=== PATIENT | female | born 1945 | race Caucasian/White ===

== ENCOUNTER 2020-10-06 18:09 | Inpatient (IN) ==
[2020-10-06 19:57] LABS: Basophils % 0.2 % (0.0-0.8); Eosinophils # 0.2 10*3/uL (0.0-0.87); Eosinophils % 2.1 % (0.00-10.9); Hematocrit 45.9 VOL% (35.7-47.0); Hemoglobin 14.4 GM/DL (12.0-16.0); Immature Granulocytes % 0.3 %; Immature Granulocytes Absolute 0.03 #; Lymphocytes # 4.2 10*3/uL (1.4-4.0); Lymphocytes % 44.7 % (21.3-54.2); Mean Corpuscular HGB Conc 31.4 GM/DL (32-36); Mean Corpuscular Volume 94.1 FL (87-102); Mean Platelet Volume 10.3 FL (9.6-12.0); Monocytes % 10.9 % (1.7-12.7); Neutrophils % 41.8 % (38.7-73.9); Platelet Count 258 T/CUMM (130-400); Red Blood Count 4.88 MC/CUMM (3.8-5.5); Red Cell Distribution Width 13.4 % (9.3-17.3); White Blood Count 9.4 T/CUMM (4-12)
[2020-10-06 20:23] LABS: Alanine Aminotransferase 18 U/L (13-56); Albumin 3.1 G/DL (3.4-5.0); Alkaline Phosphatase 96 U/L (45-117); Aspartate Amino Transferase 27 U/L (0-37); Bilirubin,Total < 0.39 MG/DL (0.2-1.0); Blood Urea Nitrogen 17 MG/DL (7-18); Carbon Dioxide 28 MMOL/L (21-32); Estimated Glom Filtration Rate 50 ML/MIN; Glucose 100 MG/DL (74-106); Osmolality,Calculated 274.8 MOS/KG (273-304); Potassium 4.5 MMOL/L (3.5-5.1); Sodium 137 MMOL/L (136-145)
[2020-10-06 20:33] LABS: Eosinophils 2 % (0-10); Lymphocytes 41 % (20-55); Segmented Neutrophils 50 % (50-85); Total Cells Counted 100
[2020-10-06 20:34] LABS: Platelet Estimate Adequate
[2020-10-06 20:38] LABS: Ferritin 58.2 ng/ml (8-252)
[2020-10-06 20:59] LABS: ABG Base Excess 1.9 MMOL/L (-2.5-2.5); ABG Oxygen Saturation 94.9 % (95-100); ABG PCO2 38.2 MM HG (35-48); ABG PO2 73.7 MM HG (80-95); ABG TCO2 22.5 MMOL/L (23-27)
[2020-10-06 21:16] LABS: Bilirubin,Urine Negative (Negative); Blood, Urine Negative (Negative); Glucose,Urine (UA) Negative (Negative); Ketones,Urine Negative (Negative); Mucus,Urine Few /LPF (Occasional); Nitrite,Urine Negative (Negative); Protein,Urine Negative; RBC,Urine 1 /HPF (0-4); Squamous Epithelial Cell,Urine Occasional /HPF (0-10); Urine Appearance CLEAR (Clear); Urine Color Yellow (Yellow); Urine Specific Gravity 1.024 (1.001-1.035); WBC,Urine 1 /HPF (0-6)
[2020-10-06] MEDS ORDERED: GLUCAGON 1 MG VIAL IM PRN (21:27)
[2020-10-06] MEDS ORDERED: ONDANSETRON 4 MG/2 ML VIAL IV PRN (21:27)
[2020-10-06] MEDS ORDERED: ZALEPLON 5 MG CAPSULE PO PRN (21:27)
[2020-10-06] MEDS ORDERED: DEXTROSE 50% 25 GM/50 ML VIAL IV PRN (21:27)
[2020-10-06] MEDS: ASCORBIC ACID 500 MG TABLET PO SCH (21:52)
[2020-10-06] MEDS: ENOXAPARIN 40 MG/0.4 ML SYRINGE SUBCUT SCH (21:52)
[2020-10-06] MEDS: cefTRIAXone 1,000 MG in SYRINGE 1 EACH IV SCH (21:52)
[2020-10-06] MEDS: AZITHROMYCIN INJ 500 MG in SODIUM CHLORIDE 0.9% 250 ML IV SCH (21:52)
[2020-10-06] MEDS: FAMOTIDINE 20 MG TABLET PO SCH (21:52)
[2020-10-07] MEDS: ALBUTEROL INHALER 18 GM INH SCH ×4 (01:23→21:32)
[2020-10-07 05:52] LABS: Basophils % 0.2 % (0.0-0.8); Eosinophils # 0.2 10*3/uL (0.0-0.87); Eosinophils % 2.2 % (0.00-10.9); Hematocrit 42.8 VOL% (35.7-47.0); Immature Granulocytes % 0.5 %; Immature Granulocytes Absolute 0.04 #; Lymphocytes # 4.4 10*3/uL (1.4-4.0); Mean Corpuscular HGB Conc 30.4 GM/DL (32-36); Mean Corpuscular Volume 96.4 FL (87-102); Mean Platelet Volume 10.2 FL (9.6-12.0); Monocytes % 11.9 % (1.7-12.7); Neutrophils % 34.2 % (38.7-73.9); Platelet Count 255 T/CUMM (130-400); Red Blood Count 4.44 MC/CUMM (3.8-5.5); Red Cell Distribution Width 13.4 % (9.3-17.3); White Blood Count 8.6 T/CUMM (4-12)
[2020-10-07 06:08] LABS: Albumin 2.7 G/DL (3.4-5.0); Bilirubin,Total 0.4 MG/DL (0.2-1.0); Calcium 8.9 MG/DL (8.5-10.1); Ferritin 44.6 ng/ml (8-252); Osmolality,Calculated 277.5 MOS/KG (273-304); Potassium 4.3 MMOL/L (3.5-5.1); Total Protein 7.4 G/DL (6.4-8.3)
[2020-10-07 06:35] LABS: Atypical Lymphocytes Few; Eosinophils 1 % (0-10); Lymphocytes 54 % (20-55); Segmented Neutrophils 29 % (50-85); Total Cells Counted 100
[2020-10-07 06:36] LABS: Hypochromasia 1+; Microcytosis 1+; Platelet Estimate Normal
[2020-10-07] MEDS: CHOLECALCIFEROL 1,000 UNIT TABLET PO SCH (08:56)
[2020-10-07] MEDS: CETIRIZINE 10 MG TABLET PO SCH (08:57)
[2020-10-07] MEDS: FAMOTIDINE 20 MG TABLET PO SCH ×2 (08:57→21:31)
[2020-10-07] MEDS: ASCORBIC ACID 500 MG TABLET PO SCH ×2 (08:57→21:31)
[2020-10-07] MEDS: ZINC GLUCONATE 50 MG TABLET PO SCH (08:57)
[2020-10-07] MEDS: DEXAMETHASONE 4 MG/1 ML VIAL IV SCH (08:58)
[2020-10-07] MEDS: ENOXAPARIN 40 MG/0.4 ML SYRINGE SUBCUT SCH (21:31)
[2020-10-07] MEDS: cefTRIAXone 1,000 MG in SYRINGE 1 EACH IV SCH (21:31)
[2020-10-07] MEDS: MELATONIN 3 MG TABLET PO PRN (21:32)
[2020-10-07] MEDS: ACETAMINOPHEN 325 MG TABLET PO PRN (21:32)
[2020-10-07] MEDS: AZITHROMYCIN INJ 500 MG in SODIUM CHLORIDE 0.9% 250 ML IV SCH (22:30)
[2020-10-08] MEDS: ALBUTEROL INHALER 18 GM INH SCH ×4 (02:09→18:30)
[2020-10-08 04:44] LABS: ABG Base Excess -1.1 MMOL/L (-2.5-2.5); ABG HCO3 23.1 MMOL/L (20-26); ABG Oxygen Saturation 91.9 % (95-100); ABG PCO2 37.2 MM HG (35-48); ABG PH 7.411 (7.35-7.45); ABG PO2 64.5 MM HG (80-95); ABG TCO2 24.2 MMOL/L (23-27); Allen Test Positive; Pt O2 Delivery Device Room Air
[2020-10-08 05:48] LABS: Basophils % 0.1 % (0.0-0.8); Hematocrit 41.9 VOL% (35.7-47.0); Hemoglobin 13.7 GM/DL (12.0-16.0); Immature Granulocytes % 0.6 %; Immature Granulocytes Absolute 0.06 #; Lymphocytes # 3.3 10*3/uL (1.4-4.0); Lymphocytes % 34.6 % (21.3-54.2); Mean Corpuscular HGB Conc 32.7 GM/DL (32-36); Mean Corpuscular Volume 90.5 FL (87-102); Mean Platelet Volume 10.1 FL (9.6-12.0); Monocytes % 7.5 % (1.7-12.7); Neutrophils % 57.2 % (38.7-73.9); Platelet Count 283 T/CUMM (130-400); Red Blood Count 4.63 MC/CUMM (3.8-5.5); Red Cell Distribution Width 13.2 % (9.3-17.3); White Blood Count 9.5 T/CUMM (4-12)
[2020-10-08 06:02] LABS: Calcium 9.2 MG/DL (8.5-10.1); Osmolality,Calculated 277.7 MOS/KG (273-304); Potassium 4.3 MMOL/L (3.5-5.1)
[2020-10-08] MEDS: METOPROLOL SUCCINATE XL 50 MG TABLET PO SCH (08:54)
[2020-10-08] MEDS: SIMVASTATIN 10 MG TABLET PO SCH (08:54)
[2020-10-08] MEDS: CHOLECALCIFEROL 1,000 UNIT TABLET PO SCH (08:54)
[2020-10-08] MEDS: CETIRIZINE 10 MG TABLET PO SCH (08:54)
[2020-10-08] MEDS: FAMOTIDINE 20 MG TABLET PO SCH ×2 (08:54→21:00)
[2020-10-08] MEDS: ASPIRIN CHEW 81 MG TABLET PO SCH (08:54)
[2020-10-08] MEDS: ASCORBIC ACID 500 MG TABLET PO SCH ×2 (08:54→21:00)
[2020-10-08] MEDS: ZINC GLUCONATE 50 MG TABLET PO SCH (08:54)
[2020-10-08] MEDS: DEXAMETHASONE 4 MG/1 ML VIAL IV SCH (08:55)
[2020-10-08] MEDS: cefTRIAXone 1,000 MG in SYRINGE 1 EACH IV SCH (21:00)
[2020-10-08] MEDS: ENOXAPARIN 40 MG/0.4 ML SYRINGE SUBCUT SCH (21:00)
[2020-10-08] MEDS: AZITHROMYCIN 250 MG TABLET PO SCH (21:38)
[2020-10-09] MEDS: ALBUTEROL INHALER 18 GM INH SCH ×4 (02:29→20:17)
[2020-10-09] MEDS: CHOLECALCIFEROL 1,000 UNIT TABLET PO SCH (08:05)
[2020-10-09] MEDS: CETIRIZINE 10 MG TABLET PO SCH (08:05)
[2020-10-09] MEDS: ZINC GLUCONATE 50 MG TABLET PO SCH (08:05)
[2020-10-09] MEDS: ASPIRIN CHEW 81 MG TABLET PO SCH (08:05)
[2020-10-09] MEDS: DEXAMETHASONE 4 MG/1 ML VIAL IV SCH (08:05)
[2020-10-09] MEDS: METOPROLOL SUCCINATE XL 50 MG TABLET PO SCH ×2 (08:05→09:16)
[2020-10-09] MEDS: FAMOTIDINE 20 MG TABLET PO SCH ×2 (08:05→21:27)
[2020-10-09] MEDS: ASCORBIC ACID 500 MG TABLET PO SCH ×2 (08:05→21:27)
[2020-10-09] MEDS: SIMVASTATIN 10 MG TABLET PO SCH (08:06)
[2020-10-09] MEDS: cefTRIAXone 1,000 MG in SYRINGE 1 EACH IV SCH (21:28)
[2020-10-09] MEDS: ENOXAPARIN 40 MG/0.4 ML SYRINGE SUBCUT SCH (21:28)
[2020-10-09] MEDS: AZITHROMYCIN 250 MG TABLET PO SCH (21:28)
[2020-10-09] MEDS: MELATONIN 3 MG TABLET PO PRN (21:29)
[2020-10-09] MEDS: ACETAMINOPHEN 325 MG TABLET PO PRN (21:29)
[2020-10-10] MEDS: ALBUTEROL INHALER 18 GM INH SCH ×4 (00:18→20:24)
[2020-10-10] MEDS: DEXAMETHASONE 4 MG/1 ML VIAL IV SCH (08:03)
[2020-10-10] MEDS: ZINC GLUCONATE 50 MG TABLET PO SCH (08:04)
[2020-10-10] MEDS: SIMVASTATIN 10 MG TABLET PO SCH (08:04)
[2020-10-10] MEDS: CHOLECALCIFEROL 1,000 UNIT TABLET PO SCH (08:04)
[2020-10-10] MEDS: ASPIRIN CHEW 81 MG TABLET PO SCH (08:04)
[2020-10-10] MEDS: METOPROLOL SUCCINATE XL 50 MG TABLET PO SCH (08:04)
[2020-10-10] MEDS: ASCORBIC ACID 500 MG TABLET PO SCH ×2 (08:04→21:50)
[2020-10-10] MEDS: CETIRIZINE 10 MG TABLET PO SCH (08:04)
[2020-10-10] MEDS: FAMOTIDINE 20 MG TABLET PO SCH ×2 (08:04→21:50)
[2020-10-10] MEDS: ACETAMINOPHEN 325 MG TABLET PO PRN ×2 (13:13→21:49)
[2020-10-10] MEDS ORDERED: BENZONATATE 100 MG CAPSULE PO PRN (15:03)
[2020-10-10] MEDS: MELATONIN 3 MG TABLET PO PRN (21:49)
[2020-10-10] MEDS: ENOXAPARIN 40 MG/0.4 ML SYRINGE SUBCUT SCH (21:51)
[2020-10-10] MEDS: cefTRIAXone 1,000 MG in SYRINGE 1 EACH IV SCH (21:51)
[2020-10-10] MEDS: AZITHROMYCIN 250 MG TABLET PO SCH (21:51)
[2020-10-11] MEDS: ALBUTEROL INHALER 18 GM INH SCH ×3 (00:48→16:00)
[2020-10-11] MEDS: FAMOTIDINE 20 MG TABLET PO SCH ×2 (08:50→21:20)
[2020-10-11] MEDS: ASCORBIC ACID 500 MG TABLET PO SCH ×2 (08:50→21:20)
[2020-10-11] MEDS: METOPROLOL SUCCINATE XL 50 MG TABLET PO SCH (08:51)
[2020-10-11] MEDS: SIMVASTATIN 10 MG TABLET PO SCH (08:51)
[2020-10-11] MEDS: CETIRIZINE 10 MG TABLET PO SCH (08:51)
[2020-10-11] MEDS: DEXAMETHASONE 4 MG/1 ML VIAL IV SCH (08:51)
[2020-10-11] MEDS: ZINC GLUCONATE 50 MG TABLET PO SCH (08:51)
[2020-10-11] MEDS: ASPIRIN CHEW 81 MG TABLET PO SCH (08:51)
[2020-10-11] MEDS: CHOLECALCIFEROL 1,000 UNIT TABLET PO SCH (08:51)
[2020-10-11] MEDS: ACETAMINOPHEN 325 MG TABLET PO PRN (14:16)
[2020-10-11] MEDS: ALBUTEROL 2.5 MG/3 ML NEB RESP TX SCH (19:33)
[2020-10-11] MEDS: cefTRIAXone 1,000 MG in SYRINGE 1 EACH IV SCH (21:00)
[2020-10-11] MEDS: MELATONIN 3 MG TABLET PO PRN (21:20)
[2020-10-11] MEDS: ENOXAPARIN 40 MG/0.4 ML SYRINGE SUBCUT SCH (21:21)
[2020-10-12] MEDS: ALBUTEROL 2.5 MG/3 ML NEB RESP TX SCH ×4 (00:56→19:38)
[2020-10-12 06:13] LABS: Basophils % 0.2 % (0.0-0.8); Hematocrit 40.1 VOL% (35.7-47.0); Hemoglobin 13.2 GM/DL (12.0-16.0); Immature Granulocytes % 1.8 %; Immature Granulocytes Absolute 0.26 #; Lymphocytes # 3.8 10*3/uL (1.4-4.0); Lymphocytes % 27.1 % (21.3-54.2); Mean Corpuscular HGB Conc 32.9 GM/DL (32-36); Mean Corpuscular Volume 90.1 FL (87-102); Mean Platelet Volume 10.6 FL (9.6-12.0); Monocytes % 11.3 % (1.7-12.7); Neutrophils % 59.6 % (38.7-73.9); Platelet Count 363 T/CUMM (130-400); Red Blood Count 4.45 MC/CUMM (3.8-5.5); Red Cell Distribution Width 13.2 % (9.3-17.3); White Blood Count 14.1 T/CUMM (4-12)
[2020-10-12 06:41] LABS: Blood Urea Nitrogen 35 MG/DL (7-18); Calcium 8.9 MG/DL (8.5-10.1); Carbon Dioxide 25 MMOL/L (21-32); Estimated Glom Filtration Rate 63 ML/MIN; Glucose 104 MG/DL (74-106); Osmolality,Calculated 280.8 MOS/KG (273-304); Potassium 4.6 MMOL/L (3.5-5.1); Sodium 137 MMOL/L (136-145)
[2020-10-12] MEDS: CETIRIZINE 10 MG TABLET PO SCH (08:11)
[2020-10-12] MEDS: CHOLECALCIFEROL 1,000 UNIT TABLET PO SCH (08:11)
[2020-10-12] MEDS: METOPROLOL SUCCINATE XL 50 MG TABLET PO SCH (08:11)
[2020-10-12] MEDS: FAMOTIDINE 20 MG TABLET PO SCH ×2 (08:11→20:07)
[2020-10-12] MEDS: ZINC GLUCONATE 50 MG TABLET PO SCH (08:12)
[2020-10-12] MEDS: ASPIRIN CHEW 81 MG TABLET PO SCH (08:12)
[2020-10-12] MEDS: SIMVASTATIN 10 MG TABLET PO SCH (08:12)
[2020-10-12] MEDS: ASCORBIC ACID 500 MG TABLET PO SCH ×2 (08:12→20:07)
[2020-10-12] MEDS: DEXAMETHASONE 4 MG/1 ML VIAL IV SCH (08:14)
[2020-10-12] MEDS: MELATONIN 3 MG TABLET PO PRN (20:07)
[2020-10-12] MEDS: cefTRIAXone 1,000 MG in SYRINGE 1 EACH IV SCH ×2 (20:08→20:52)
[2020-10-12] MEDS: ENOXAPARIN 40 MG/0.4 ML SYRINGE SUBCUT SCH ×2 (20:08→20:52)
[2020-10-13] MEDS: ALBUTEROL 2.5 MG/3 ML NEB RESP TX SCH ×2 (01:14→07:15)
[2020-10-13] MEDS: ASPIRIN CHEW 81 MG TABLET PO SCH (09:24)
[2020-10-13] MEDS: DEXAMETHASONE 4 MG/1 ML VIAL IV SCH (09:24)
[2020-10-13] MEDS: SIMVASTATIN 10 MG TABLET PO SCH (09:24)
[2020-10-13] MEDS: METOPROLOL SUCCINATE XL 50 MG TABLET PO SCH (09:24)
[2020-10-13] MEDS: CHOLECALCIFEROL 1,000 UNIT TABLET PO SCH (09:24)
[2020-10-13] MEDS: ZINC GLUCONATE 50 MG TABLET PO SCH (09:24)
[2020-10-13] MEDS: FAMOTIDINE 20 MG TABLET PO SCH (09:24)
[2020-10-13] MEDS: CETIRIZINE 10 MG TABLET PO SCH (09:24)
[2020-10-13] MEDS: ASCORBIC ACID 500 MG TABLET PO SCH (09:24)
[2020-10-13 15:54] VITALS: BP 132/87
== END 2020-10-13 16:41 | disposition home or self-care (01) | DRG 177 ==
LOC: N.ED 18:09 → N.2E 21:27 → N.5E 10-11 11:08
PROVIDERS: ADMIT Internal Medicine; ATTEND Internal Medicine

== ENCOUNTER 2021-10-02 10:48 | Observation (INO) ==
[2021-10-02] MEDS ORDERED: ASPIRIN 325 MG TABLET PO STA (11:20)
[2021-10-02 12:32] LABS: Basophils % 0.3 % (0.0-0.8); Eosinophils # 0.5 10*3/uL (0.0-0.87); Eosinophils % 3.9 % (0.00-10.9); Hematocrit 31.5 VOL% (35.7-47.0); Hemoglobin 9.6 GM/DL (12.0-16.0); Immature Granulocytes % 0.7 %; Immature Granulocytes Absolute 0.08 #; Lymphocytes # 4.3 10*3/uL (1.4-4.0); Lymphocytes % 37.2 % (21.3-54.2); Mean Corpuscular HGB Conc 30.5 GM/DL (32-36); Mean Corpuscular Volume 84.7 FL (87-102); Mean Platelet Volume 9.6 FL (9.6-12.0); Monocytes % 9.6 % (1.7-12.7); Neutrophils % 48.3 % (38.7-73.9); Platelet Count 384 T/CUMM (130-400); Red Blood Count 3.72 MC/CUMM (3.8-5.5); White Blood Count 11.7 T/CUMM (4-12)
[2021-10-02 12:48] LABS: INR 1.4; PT Patient Result 15.1 SECS (10.5-12.0); Partial Thromboplastin Time 33.6 SECS (23.8-32.1)
[2021-10-02 13:03] LABS: Albumin 2.5 G/DL (3.4-5.0); Bilirubin,Total 0.4 MG/DL (0.20-1.00); Potassium 4.2 MMOL/L (3.5-5.1); Total Protein 7.4 G/DL (6.4-8.2)
[2021-10-02] MEDS ORDERED: MORPHINE 2 MG/1 ML SYRINGE IV STA (14:42)
[2021-10-02] MEDS ORDERED: ONDANSETRON 4 MG/2 ML VIAL IV STA (14:43)
[2021-10-02] MEDS ORDERED: DEXTROSE 10% 250 ML BAG IV PRN (15:53)
[2021-10-02] MEDS ORDERED: GLUCAGON 1 MG VIAL IM PRN (15:53)
[2021-10-02] MEDS ORDERED: methylPREDNISolone SOD SUC 125 MG/2 ML VIAL IV STA (16:01)
[2021-10-02] MEDS ORDERED: HEPARIN LOCK FLUSH 500 UNIT/5 ML SYRINGE IV ONE (16:13)
[2021-10-02] MEDS ORDERED: HEPARIN LOCK FLUSH 500 UNIT/5 ML SYRINGE IV STA (16:23)
[2021-10-02] MEDS: ENOXAPARIN 40 MG/0.4 ML SYRINGE SUBCUT SCH (20:59)
[2021-10-02 22:48] LABS: Bacteria,Urine Occasional /HPF (Few); Bilirubin,Urine Negative (Negative); Blood, Urine Small mg/dL (Negative); Glucose,Urine (UA) Negative (Negative); Ketones,Urine Negative (Negative); Mucus,Urine Few /LPF (Occasional); Nitrite,Urine Negative (Negative); Protein,Urine Negative; RBC,Urine 2 /HPF (0-4); Squamous Epithelial Cell,Urine Occasional /HPF (0-10); Urine Appearance CLEAR (Clear); Urine Color Straw (Yellow); Urine Specific Gravity 1.028 (1.001-1.035); Urine Urobilinogen < 2.0 EU/DL (<2.0)
[2021-10-03 05:23] LABS: Basophils % 0.3 % (0.0-0.8); Hematocrit 32.8 VOL% (35.7-47.0); Hemoglobin 9.8 GM/DL (12.0-16.0); Immature Granulocytes Absolute 0.06 #; Lymphocytes # 2.9 10*3/uL (1.4-4.0); Lymphocytes % 45.2 % (21.3-54.2); Mean Corpuscular HGB Conc 29.9 GM/DL (32-36); Mean Platelet Volume 9.8 FL (9.6-12.0); Monocytes % 1.1 % (1.7-12.7); Neutrophils % 52.4 % (38.7-73.9); Platelet Count 404 T/CUMM (130-400); Red Blood Count 3.86 MC/CUMM (3.8-5.5); Red Cell Distribution Width 15.1 % (9.3-17.3); White Blood Count 6.3 T/CUMM (4-12)
[2021-10-03 05:47] LABS: Alanine Aminotransferase 11 U/L (13-56); Albumin 2.4 G/DL (3.4-5.0); Alkaline Phosphatase 87 U/L (45-117); Aspartate Amino Transferase 17 U/L (0-37); Bilirubin,Total < 0.39 MG/DL (0.20-1.00); Blood Urea Nitrogen 12 MG/DL (7-18); Calcium 9.1 MG/DL (8.5-10.1); Carbon Dioxide 26 MMOL/L (21-32); Estimated Glom Filtration Rate 79 ML/MIN; Glucose 158 MG/DL (74-106); HDL Cholesterol 35 MG/DL (40-60); Osmolality,Calculated 275.8 MOS/KG (273-304); Potassium 4.1 MMOL/L (3.5-5.1); Risk Ratio 4.34; Sodium 137 MMOL/L (136-145); Total Protein 7.7 G/DL (6.4-8.2); Triglycerides 82 MG/DL (2-150); VLDL Cholesterol 16.4 MG/DL
[2021-10-03 07:46] LABS: % Iron Saturation 5.4 % (18-50)
[2021-10-03] MEDS: cefTRIAXone 1,000 MG in SODIUM CHLORIDE 0.9% 100 ML IV SCH (08:59)
[2021-10-03] MEDS: CHOLECALCIFEROL 5,000 UNIT TABLET PO SCH (09:01)
[2021-10-03] MEDS: PANTOPRAZOLE 40 MG TABLET PO SCH (09:01)
[2021-10-03] MEDS: ZINC SULFATE 220 MG CAPSULE PO SCH (09:01)
[2021-10-03] MEDS: ASCORBIC ACID 500 MG TABLET PO SCH ×2 (09:01→21:04)
[2021-10-03] MEDS: DEXAMETHASONE INJ 10 MG in SODIUM CHLORIDE 0.9% 50 ML IV SCH (09:41)
[2021-10-03] MEDS: FERRIC GLUCONATE COMPLEX 125 MG in SODIUM CHLORIDE 0.9% 100 ML IV SCH (10:30)
[2021-10-03] MEDS ORDERED: ACETAMINOPHEN 325 MG TABLET PO PRN (20:20)
[2021-10-03] MEDS ORDERED: ONDANSETRON 4 MG/2 ML VIAL IV PRN (20:21)
[2021-10-03] MEDS ORDERED: KETOROLAC 15 MG/1 ML VIAL IV PRN (20:22)
[2021-10-03] MEDS: ENOXAPARIN 40 MG/0.4 ML SYRINGE SUBCUT SCH (21:04)
[2021-10-04] MEDS ORDERED: METOPROLOL SUCCINATE XL 50 MG TABLET PO SCH (09:00)
[2021-10-04] MEDS ORDERED: ASPIRIN CHEW 81 MG TABLET PO SCH (09:00)
[2021-10-04] MEDS: PANTOPRAZOLE 40 MG TABLET PO SCH (09:37)
[2021-10-04] MEDS: ZINC SULFATE 220 MG CAPSULE PO SCH (09:37)
[2021-10-04] MEDS: ASCORBIC ACID 500 MG TABLET PO SCH (09:37)
[2021-10-04] MEDS: CHOLECALCIFEROL 5,000 UNIT TABLET PO SCH (09:37)
[2021-10-04] MEDS: DEXAMETHASONE INJ 10 MG in SODIUM CHLORIDE 0.9% 50 ML IV SCH (09:38)
[2021-10-04] MEDS: FERRIC GLUCONATE COMPLEX 125 MG in SODIUM CHLORIDE 0.9% 100 ML IV SCH (10:17)
[2021-10-04] MEDS: cefTRIAXone 1,000 MG in SODIUM CHLORIDE 0.9% 100 ML IV SCH (11:43)
[2021-10-04 13:01] VITALS: BP 145/81
[2021-10-04] MEDS ORDERED: HEPARIN LOCK FLUSH 500 UNIT/5 ML SYRINGE IV ONE (15:38)
[2021-10-04] MEDS ORDERED: SIMVASTATIN 10 MG TABLET PO SCH (21:00)
== END 2021-10-04 16:39 | disposition home health service (06) ==
LOC: EDBD → EDUNIT# → N.ED 10:48 → N.TELEN 10:48
PROVIDERS: ADMIT Internal Medicine; ATTEND Internal Medicine